=== PATIENT | male | born 1990 | race Caucasian/White ===

== ENCOUNTER 2017-10-07 23:35 | Emergency (ER) | END 2017-10-08 03:39 | disposition home or self-care (01) ==

== ENCOUNTER 2018-07-25 19:32 | Emergency (ER) | payer OTHER ==
[~2018-07-25] VITALS: Ht 175.3 cm; Wt 86.4 kg
[~2018-07-25 19:32] MED LIST: CYCL10TA7 PO; HYDR-3498 PO; IBUP-1542 PO
[2018-07-25 19:38] VITALS: Ht 175.3 cm; Wt 86.4 kg
[2018-07-25] MEDS ORDERED: KETOROLAC 30 MG INJ IM STA (20:19)
[2018-07-25] MEDS ORDERED: IBUP800T48 PO (21:02)
[2018-07-25] MEDS ORDERED: CYCL10TA7 PO (21:02)
--- NOTE | 2018-07-25 21:04 | ERD ---
ER Documentation Chief Complaint Chief Complaint DYSURIA & UPPER BACK PAIN HPI 28-year-old male is here with bilateral mid back pain for the past 3 days. No trauma. No dysuria hematuria frequency. No fever. No nausea or vomiting. Has had a history of muscle spasm and this feels similar. ROS All systems reviewed and are negative except as per history of present illness. Medications Home Meds Active Scripts Ibuprofen* (Motrin*) 800 Mg Tab, 800 MG PO Q6, #30 TAB Prov:LENI BARNES PA-C 07/25/18 Cyclobenzaprine Hcl* (Cyclobenzaprine Hcl*) 10 Mg Tablet, 10 MG PO TID, #20 TAB Prov:LENI BARNES PA-C 07/25/18 Cyclobenzaprine Hcl* (Cyclobenzaprine Hcl*) 10 Mg Tablet, 10 MG PO TID, #15 TAB Prov:ELAINE MILLER. SPREADER OPERATOR 10/08/17 Ibuprofen* (Motrin*) 600 Mg Tab, 600 MG PO Q6H PRN for PAIN AND OR ELEVATED TEMP, #30 TAB Prov:ELAINE MILLER. SPREADER OPERATOR 10/08/17 Hydrocodone Bit-Acetaminophen* ([place]*) 5-325 Mg Tab, 1 TAB PO Q6 PRN for PAIN, #10 TAB Prov:ELAINE MILLER. SPREADER OPERATOR 01/11/15 Allergies Allergies: Coded Allergies: No Known Allergy (Unverified , 01/11/15) PMhx/Soc History of Surgery: No Anesthesia Reaction: No Hx Neurological Disorder: No Hx Respiratory Disorders: No Hx Cardiac Disorders: No Hx Psychiatric Problems: No Hx Miscellaneous Medical Probl: No Hx Alcohol Use: No Hx Substance Use: Yes (marijuana) Hx Tobacco Use: No Smoking Status: Never smoker FmHx Family History: No diabetes Physical Exam Vitals Vital Signs Date Temp Pulse Resp B/P (MAP) Pulse Ox O2 O2 Flow FiO2 Time Delivery Rate 07/25/18 98.0 105 18 159/96 100 19:38 (117) Physical Exam INITIAL VITAL SIGNS: Reviewed by me GENERAL: Awake, alert and oriented x 4, well appearing, nontoxic, speaking in full sentences. No acute distress HEAD: Atraumatic NECK: Supple. No masses. Full range of motion. No meningismus. No midline tenderness. RESPIRATORY: Clear to auscultation bilaterally. Symmetric chest wall rise. No wheezing or rales. No accessory muscle use. CV: Regular rate and rhythm. No murmurs, rubs, or gallops. ABDOMEN: Soft, non-distended. Nontender. Negative Dahlgren. Negative McBurneys point tenderness. No CVA tenderness bilaterally. No guarding. No rebound. Back Exam: Compartments: Soft Motor: Normal flexion and extension of bilateral hip/knee/ankle/foot Sensation: Intact to light touch throughout Bones: No midline TTP Results 24 hrs Laboratory Tests Test 07/25/18 20:34 Bedside Urine pH (LAB) 6.0 Bedside Urine Protein (LAB) Negative Bedside Urine Glucose (UA) Negative Bedside Urine Ketones (LAB) Negative Bedside Urine Blood 1+ Bedside Urine Nitrite (LAB) Negative Bedside Urine Leukocyte Esterase (L Negative Current Medications Medications Dose Sig/Gomez Start Time Status Last (Trade) Ordered Route PRN Stop Time Admin Dose Reason Admin Ketorolac 30 mg ONCE STAT 07/25/18 DC 07/25/18 Tromethamine IM 20:19 20:29 (Toradol) 07/25/18 20:20 Procedures/MDM The differential diagnosis includes but is not limited to muscle strain, ligament strain, contusion, arthritis, discogenetic disease, non- musculoskeletal, cauda equina syndrome, cord compression, abscess and others. Urine is negative for infection. Patient given Toradol. Patient discharged with ibuprofen and Flexeril. Patient counseled regarding my diagnostic impression and care plan. Prior to discharge all questions answered. Pt agrees with treatment plan and understands strict return precautions. Pt is instructed to follow up with primary care provider within 24-48 hours. Precautionary instructions provided including instructions to return to the ER if not improving or for any worsening or changing symptoms or concerns. Departure Diagnosis: Primary Impression: Back pain Condition: Stable Patient Instructions: Back Pain (Acute Or Chronic) Additional Instructions: Llame al doctor MASHAHNAZ y cinda genaro MITCH PARA DENTRO DE 1-2 PULLIAM.Dgale a la secretaria que nosotros le instruimos hacer esta mitch.Avise o llame si nj condicin se empeora antes de la mitch. Regresa aqui si peor o no mejor.FOLLOW UP WITH YOUR PRIMARY CARE PHYSICIAN TOMORROW.Return to this facility if you are not improving as expected. LENI BARNES PA-C Jul 25, 2018 21:04
[2018-07-25 21:09] VITALS: BP 148/90; PULSE 98; RESP 18
== END 2018-07-25 21:14 | disposition home or self-care (01) ==
LOC: FTE 19:32
DX: M54.6 Pain in thoracic spine (principal)
CPT/HCPCS: 81003; 96372; J1885; Z7502

== ENCOUNTER 2018-07-26 19:43 | Emergency (ER) | payer OTHER ==
[~2018-07-26] VITALS: Ht 170.2 cm; Wt 87.1 kg
[~2018-07-26 19:43] MED LIST changes: +IBUP800T48 PO
[2018-07-26 19:51] VITALS: BP 136/85; PULSE 79; RESP 20; Ht 170.2 cm; Wt 87.1 kg
--- NOTE | 2018-07-26 22:05 | ERD ---
ER Documentation Chief Complaint Chief Complaint penile pain since yesterday states stings after urination HPI 28-year-old male who I saw yesterday complaining of bilateral flank pain. He is here because since yesterday when he goes to the bathroom after he is completed urinating he has some burning. No blood. No frequency. He has recent unprotected sex but just with his . No abnormal discharge. No vomiting. No fever. ROS All systems reviewed and are negative except as per history of present illness. Medications Home Meds Active Scripts Ibuprofen* (Motrin*) 800 Mg Tab, 800 MG PO Q6, #30 TAB Prov:LENI BARNES PA-C 07/25/18 Cyclobenzaprine Hcl* (Cyclobenzaprine Hcl*) 10 Mg Tablet, 10 MG PO TID, #20 TAB Prov:LENI BARNES PA-C 07/25/18 Cyclobenzaprine Hcl* (Cyclobenzaprine Hcl*) 10 Mg Tablet, 10 MG PO TID, #15 TAB Prov:ELAINE MILLER. DENTAL ASSISTING INSTRUCTOR 10/08/17 Ibuprofen* (Motrin*) 600 Mg Tab, 600 MG PO Q6H PRN for PAIN AND OR ELEVATED TEMP, #30 TAB Prov:ELAINE MILLER. DENTAL ASSISTING INSTRUCTOR 10/08/17 Hydrocodone Bit-Acetaminophen* ([place]*) 5-325 Mg Tab, 1 TAB PO Q6 PRN for PAIN, #10 TAB Prov:ELAINE MILLER. DENTAL ASSISTING INSTRUCTOR 01/11/15 Allergies Allergies: Coded Allergies: No Known Allergy (Unverified , 01/11/15) PMhx/Soc Medical and Surgical Hx: pt denies Medical Hx, pt denies Surgical Hx History of Surgery: No Anesthesia Reaction: No Hx Neurological Disorder: No Hx Respiratory Disorders: No Hx Cardiac Disorders: No Hx Psychiatric Problems: No Hx Miscellaneous Medical Probl: No Hx Alcohol Use: No Hx Substance Use: Yes (marijuana) Hx Tobacco Use: No Smoking Status: Never smoker FmHx Family History: No diabetes Physical Exam Vitals Vital Signs Date Temp Pulse Resp B/P (MAP) Pulse Ox O2 O2 Flow FiO2 Time Delivery Rate 07/26/18 98.7 79 20 136/85 100 19:51 (102) Physical Exam INITIAL VITAL SIGNS: Reviewed by me GENERAL: Awake, alert and oriented x 4, well appearing, nontoxic, speaking in full sentences. No acute distress HEAD: Atraumatic NECK: Supple. No masses. Full range of motion. No meningismus. No midline tenderness. RESPIRATORY: Clear to auscultation bilaterally. Symmetric chest wall rise. No wheezing or rales. No accessory muscle use. CV: Regular rate and rhythm. No murmurs, rubs, or gallops. ABDOMEN: Soft, non-distended. Nontender. Negative Powers. Negative McBurneys point tenderness. No CVA tenderness bilaterally. No guarding. No rebound. : Deffered. EXTREMITIES: No clubbing or cyanosis. No edema. Moving all extremities normally. BACK: No midline tenderness to palpation. No step-offs. Result Diagram: 07/26/18212407/26/182124 Results 24 hrs Laboratory Tests Test 07/26/18 21:18 07/26/18 21:25 Urine Color YELLOW Urine Clarity CLEAR Urine pH 6.0 Urine Specific [place] 1.011 Urine Ketones 1+ mg/dL Urine Nitrite NEGATIVE mg/dL Urine Bilirubin NEGATIVE mg/dL Urine Urobilinogen NEGATIVE mg/dL Urine Leukocyte Esterase NEGATIVE Avinash/ul Urine Microscopic RBC 1 /HPF Urine Microscopic WBC 1 /HPF Urine Hemoglobin 2+ mg/dL Urine Glucose NEGATIVE mg/dL Urine Total Protein NEGATIVE mg/dl White Blood Count 12.6 10^3/ul Red Blood Count 5.49 10^6/ul Hemoglobin 15.9 g/dl Hematocrit 46.3 % Mean Corpuscular Volume 84.3 fl Mean Corpuscular Hemoglobin 29.0 pg Mean Corpuscular Hemoglobin Concent 34.3 g/dl Red Cell Distribution Width 12.3 % Platelet Count 305 10^3/UL Mean Platelet Volume 10.0 fl Immature Granulocytes % 0.300 % Neutrophils % 60.5 % Lymphocytes % 30.0 % Monocytes % 7.5 % Eosinophils % 1.2 % Basophils % 0.5 % Nucleated Red Blood Cells % 0.0 /100WBC Immature Granulocytes # 0.040 10^3/ul Neutrophils # 7.6 10^3/ul Lymphocytes # 3.8 10^3/ul Monocytes # 1.0 10^3/ul Eosinophils # 0.2 10^3/ul Basophils # 0.1 10^3/ul Nucleated Red Blood Cells # 0.0 10^3/ul Sodium Level 140 mmol/L Potassium Level 4.1 mmol/L Chloride Level 101 mmol/L Carbon Dioxide Level 27 mmol/L Anion Gap 12 Blood Urea Nitrogen 12 mg/dl Creatinine 0.90 mg/dl Est Glomerular Filtrat Rate mL/min > 60 mL/min Glucose Level 101 mg/dl Calcium Level 10.4 mg/dl Total Bilirubin 1.7 mg/dl Direct Bilirubin 0.00 mg/dl Indirect Bilirubin 1.7 mg/dl Aspartate Amino Transf (AST/SGOT) 70 IU/L Alanine Aminotransferase (ALT/SGPT) 152 IU/L Alkaline Phosphatase 101 IU/L Total Protein 9.3 g/dl Albumin 5.3 g/dl Globulin 4.00 g/dl Albumin/Globulin Ratio 1.32 Lipase 174 U/L Procedures/MDM Patient presents with back pain and dysuria. Urine shows no evidence of infection. Blood work is nonacute. Has elevated bilirubin but no gallbladder tenderness. He is afebrile well-appearing in no distress. He was given prescription for pain medication and muscle relaxer yesterday but he did not try anything yet. Patient counseled regarding my diagnostic impression and care plan. Prior to discharge all questions answered. Pt agrees with treatment plan and understands strict return precautions. Pt is instructed to follow up with primary care provider within 24-48 hours. Precautionary instructions provided including instructions to return to the ER if not improving or for any worsening or changing symptoms or concerns. Departure Diagnosis: Primary Impression: Dysuria Additional Impression: Back pain Condition: Stable Patient Instructions: Dysuria, Back Pain (Acute Or Chronic) Additional Instructions: Call your primary care doctor TOMORROW for an appointment during the next 1-2 days.See the doctor sooner or return here if your condition worsens before your appointment time. LENI BARNES PA-C Jul 26, 2018 22:05
== END 2018-07-26 22:14 | disposition home or self-care (01) ==
LOC: FTE 19:43
DX: M54.9 Dorsalgia, unspecified (principal); R30.0 Dysuria
CPT/HCPCS: 36415; 80053; 81001; 83690; 85025; Z7502; 99283

== ENCOUNTER 2018-09-09 15:00 | Emergency (ER) | payer OTHER ==
[~2018-09-09] VITALS: Ht 170.2 cm; Wt 80.1 kg
[2018-09-09 15:10] VITALS: BP 143/95; Ht 170.2 cm; Wt 80.1 kg
--- NOTE | 2018-09-09 18:58 | ERD ---
ER Documentation Chief Complaint Chief Complaint BACK OF HEAD PAIN. NO TRAUMA. DENIES HX OF MIGRAINES HPI 28-year-old male, with a history of anxiety, presents the emergency department, complaining of 2 weeks with progressive worsening of facial pressure, runny nose with congestion and bilateral ear pain. The patient also reports neck pain but no fever, no stiffness, no distal weakness, numbness or tingling. No blurred vision, no fever or chills. ROS All systems reviewed and are negative except as per history of present illness. Medications Home Meds Active Scripts Lorazepam* (Ativan*) 0.5 Mg Tablet, 0.5 MG PO DAILY PRN for ANXIETY, #7 TAB Prov:VISHAL TELLEZ MD 09/09/18 Ibuprofen* (Motrin*) 400 Mg Tab, 400 MG PO Q8, #15 TAB Prov:VISHAL TELLEZ MD 09/09/18 Diphenhydramine Hcl* (Benadryl*) 25 Mg Cap, 25 MG PO BID PRN for NASAL CO NGESTION, #15 CAP Prov:VISHAL TELLEZ MD 09/09/18 Amoxicillin* (Amoxicillin*) 500 Mg Cap, 500 MG PO TID for 7 Days, CAP Prov:VISHAL TELLEZ MD 09/09/18 Ibuprofen* (Motrin*) 800 Mg Tab, 800 MG PO Q6, #30 TAB Prov:LENI BARNES PA-C 07/25/18 Cyclobenzaprine Hcl* (Cyclobenzaprine Hcl*) 10 Mg Tablet, 10 MG PO TID, #20 TAB Prov:LENI BARNES PA-C 07/25/18 Cyclobenzaprine Hcl* (Cyclobenzaprine Hcl*) 10 Mg Tablet, 10 MG PO TID, #15 TAB Prov:ELAINE MILLER TRANSFER AND LINE UP WORKER 10/08/17 Ibuprofen* (Motrin*) 600 Mg Tab, 600 MG PO Q6H PRN for PAIN AND OR ELEVATED TEMP, #30 TAB Prov:ELAINE MILLER. TRANSFER AND LINE UP WORKER 10/08/17 Hydrocodone Bit-Acetaminophen* ([place]*) 5-325 Mg Tab, 1 TAB PO Q6 PRN for PAIN, #10 TAB Prov:ELAINE MILLER TRANSFER AND LINE UP WORKER 01/11/15 Allergies Allergies: Coded Allergies: No Known Allergy (Unverified , 7/4/15) PMhx/Soc History of Surgery: No Anesthesia Reaction: No Hx Neurological Disorder: No Hx Respiratory Disorders: No Hx Cardiac Disorders: No Hx Psychiatric Problems: No Hx Miscellaneous Medical Probl: No Hx Alcohol Use: No Hx Substance Use: Yes (marijuana) Hx Tobacco Use: No Smoking Status: Current every day smoker FmHx Family History: No diabetes, No coronary disease Physical Exam Vitals Vital Signs Date Temp Pulse Resp B/P (MAP) Pulse Ox O2 O2 Flow FiO2 Time Delivery Rate 09/09/18 98.7 88 16 143/95 99 15:10 (111) Physical Exam Patient alert, oriented, vital signs stable. HEENT: Normocephalic, atraumatic, maxillary and frontal sinus tenderness. EYES: PERRLA, EOMI, Sclera and conjunctiva appear normal. EARS: Canals clear, tympanic membranes with bilateral erythema. THROAT: Erythematous oropharynx. NECK: Supple, No lymphadenopathy. Full ROM without pain or tenderness. HEART: RRR, no rubs, murmurs, clicks or gallops. LUNGS: Clear to auscultation. ABDOMEN: Soft, non-tender without masses or hepatosplenomegaly. EXTREMITIES: No edema bilaterally. BACK: Full ROM, no deformity, normal back exam NEURO: Cranial nerves grossly intact, no motor or sensory deficit Procedures/MDM Vital signs stable, differential diagnosis include but not limited to: Upper versus lower respiratory infection, bacterial/viral/fungal etiology. Asthma, pneumonitis, allergies, less likely meningitis. Low suspicion for acute systemic infection. Physical examination and clinical presentation consistent most likely with sinusitis. During the ED course the patient remained stable, no new complaints. Treatment options and clinical impression discussed with the patient who agrees with management. The patient is stable to be treated outpatient and will be discharged home with a Rx for antibiotics and anti-inflammatories. some side effects of prescribed medications (headache, rash, nausea, vomiting, diarrhea, hypertension, interactions with other medications) were reviewed. The patient was instructed to follow up with the primary care provider in the next 48h. If symptoms persist, worsen or new symptoms develop, then patient should return to the ED immediately. Disclaimer: Inadvertent spelling and grammatical errors are likely due to EHR/dictation software use and do not reflect on the overall quality of patient care. Also, please note that the electronic time recorded on this note does not necessarily reflect the actual time of the patient encounter. Departure Diagnosis: Primary Impression: Acute sinusitis Additional Impression: Anxiety Condition: Stable Additional Instructions: Thank you very much for allowing us to participate in your care. Your health and safety is our top priority at [facility]. Call your primary care doctor TOMORROW for an appointment during the next 2-4 days and bring all the information and medications prescribed. Have prescriptions filled and follow precisely the directions on the label. If the symptoms get worse and your provider is unavailable, return to the Emergency Department immediately. VISHAL TELLEZ MD Sep 09, 2018 18:58
[2018-09-09] MEDS ORDERED: BEN25 PO (19:01)
[2018-09-09] MEDS ORDERED: IBUP-1561 PO (19:01)
[2018-09-09] MEDS ORDERED: LORA-441 PO (19:01)
[2018-09-09] MEDS ORDERED: AMOX500C2 PO (19:01)
[2018-09-09 19:10] VITALS: PULSE 76; RESP 16
== END 2018-09-09 19:10 | disposition home or self-care (01) ==
LOC: FTE 15:00
DX: J01.90 Acute sinusitis, unspecified (principal); F41.9 Anxiety disorder, unspecified; F17.210 Nicotine dependence, cigarettes, uncomplicated
CPT/HCPCS: 99283